=== PATIENT | male | born 1985 | race Caucasian/White ===

== ENCOUNTER 2017-08-18 07:35 | Emergency (ER) | payer MEDICAID, SELFPAY ==
--- NOTE | 2017-08-18 07:53 | EDM.PDOC ---
ED HPI GENERAL MEDICAL PROBLEM - General Chief Complaint: General Stated Complaint: Hypoglycemia Time Seen by Provider: 08/18/17 07:40 Source of Information: Reports: Patient, EMS, EMS Notes Reviewed. Denies: Old Records (No [facility] records available) History Limitations: Reports: No Limitations - History of Present Illness INITIAL COMMENTS - FREE TEXT/NARRATIVE: The patient was brought to the emergency room via basic ambulance transfer with no treatment in route. Note that at about 06:45 patient began feeling dizzy and having some mild hypoglycemic symptoms similar to his previous episodes. He was given orange juice and a tube of glucose by the [facility] nurse at that time. Initial Accu-Chek of 87 mg percent by the [facility] nurse with improvement to 103 mg percent prior to transfer to this facility. No additional treatment was given in route. 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 He does take Accu-Cheks on a 3 times a day to 4 times a day basis with lighting scale in effect. His last oral intake was spaghetti at 3 AM this morning. No recent change of his diabetic therapy. He denies any pain or discomfort with improved/resolved symptoms at time of arrival. The patient denies any chest pain/pressure, heart flutter, orthostasis, orthopnea, diaphoresis, paresthesias, recent decreased exercise tolerance, or any other anginal-type symptoms. No recent history of abdominal pain, heartburn, nausea, diarrhea, melena, gross hematochezia, or any food intolerance, including fatty foods, etc.. The patient also denies any recent fever, cough, wheezing, dyspnea , etc.. No history of recent headaches, visual changes, diplopia, change in mental status, or other change in neurological status. Onset: Today, Sudden Onset Date: 08/18/17 Onset Time: 06:45 Duration: Improving, Resolved Prior to Arrival Location: Reports: Other (No pain) Quality: Reports: Same as Previous Episode Severity: Mild Improves with: Reports: Other (Oral intake as above) Worsens with: Reports: None Associated Symptoms: Reports: Confusion (Possible borderline). Denies: Chest Pain, Cough, Diaphoresis, Fever/Chills, Headaches, Loss of Appetite, Malaise, Nausea/Vomiting, Seizure, Shortness of Breath, Syncope, Weakness Treatments [employer]: Reports: Other (see below) (As above) - Related Data Allergies Allergy/AdvReac Type Severity Reaction Status Date / Time amoxicillin Allergy Cannot Verified 08/18/17 07:45 Remember insulin detemir Allergy Itching Verified 08/18/17 07:45 [From Levemir] Penicillins Allergy Cannot Verified 08/18/17 07:45 Remember Home Meds: Home Meds Insulin Glarg,Human.Rec.Analog [LantUS Solostar] 30 units SUBCUT DAILY@1999 [History] Insulin Lispro [Humalog Kwikpen U-100] 10 - 12 unit SUBCUT TIDMEALS 08/18/17 [ History] Past Medical History HEENT History: Reports: Impaired Vision, Other (See Below). Denies: Allergic Rhinitis, Cataract, Glaucoma, Hard of Hearing, Macular Degeneration, Retinal Detachment Other HEENT History: He wears glasses with no history of diabetic retinopathy Cardiovascular History: Reports: Heart Murmur, High Cholesterol, Other (See Below). Denies: Aneurysm, Arrhythmia, Blood Clots/VTE/DVT, CAD, Heart Failure, Hypertension, AL, PVD, Syncope Other Cardiovascular History: Hyperlipidemia currently diet controlled; previous history of unknown type of heart murmur secondary to previous illicit drug use Respiratory History: Reports: None. Denies: Asthma, COPD, Intubation, Difficult , Intubation, Previous, PE, Pneumothorax, Sleep Apnea Gastrointestinal History: Reports: Cholelithiasis, Gastritis, GERD, Other (See Below). Denies: Bowel Obstruction, Chronic Constipation, Chronic Diarrhea, Colon Polyp, Fecal Incontinence, GI Bleed, Hepatitis, Hiatal Hernia, Inflammatory Bowel Disease, Irritable Bowel Syndrome, Jaundice, Pancreatitis, PUD Other Gastrointestinal History: Esophageal tear in 2001 secondary to illness and alcohol abuse with NG tube therapy and Port-A-Cath needed however no other surgical procedures Genitourinary History: Reports: Diabetic Nephropathy, Other (See Below). Denies : Acute Renal Failure, BPH, Chronic Renal Insuffiency, Renal Calculus, STD, Urinary Incontinence Other Genitourinary History: Proteinuria Musculoskeletal History: Reports: None. Denies: Amputation, Arthritis, Back Pain, Chronic, Fracture, Gout, Neck Pain, Chronic, Osteoarthritis, RA, SLE Neurological History: Reports: None. Denies: Cerebral Aneurysms, Concussion, CVA, Headaches, Chronic, Head Trauma, Migraines, MS, Neuropathy, Diabetic, Neuropathy, Peripheral, Parkinson's, Seizure, TIA Psychiatric History: Reports: Addiction, Anxiety, Depression, Hallucinations, Psych Hospitalization(s), Other (See Below). Denies: Abuse, Victim of, ADD, ADHD, PTSD, Suicide Attempt, Suicidal Ideation Other Psychiatric History: Illicit drug abuse between ages 11 and 18 including cocaine, methamphetamine's, marijuana, etc. with additional alcohol abuse during those ages with previous inpatient treatment at age 18; previous medical therapy for anxiety depression disorder but no occasions or counseling at this time Endocrine/Metabolic History: Reports: Diabetes, Type I, IDDM, Other (See Below) . Denies: Diabetes, Type II, Hypothyroidism Other Endocrine/Metabolic History: Type I IDDM initially diagnosed at age 3 Hematologic History: Reports: None. Denies: Anemia, Blood Transfusion(s), Iron Deficiency Immunologic History: Reports: None. Denies: AIDS, HIV, SLE Oncologic (Cancer) History: Reports: None. Denies: Basal Cell Carcinoma, Hodgkin's Lymphoma, Leukemia, Lymphoma, Malignant Melanoma, Non-Hodgkin's Lymphoma, Squamous Cell Carcinoma Dermatologic History: Reports: Other (See Below). Denies: Eczema, Psoriasis Other Dermatologic History: Acne vulgaris - Infectious Disease History Infectious Disease History: Reports: Chicken Pox, Mononucleosis. Denies: C- Difficile, Measles, Meningitis, MRSA, Mumps, Pertussis (Whooping Cough), Rheumatic Fever, Rubella, Scarlet Fever, Shingles - Past Surgical History Head Surgeries/Procedures: Reports: None HEENT Surgical History: Reports: None. Denies: Adenoidectomy, Eye Surgery, Laser Surgery, LASIK, Myringotomy w Tube(s), Naso-Sinus Surgery, Oral Surgery, Tonsillectomy Cardiovascular Surgical History: Reports: None. Denies: Varicose Respiratory Surgical History: Reports: None. Denies: Lung Biopsies, Thoracentesis GI Surgical History: Reports: Cholecystectomy, EGD, Other (See Below). Denies: Appendectomy, Colonoscopy, Hernia, Abdominal, Hernia, Inguinal, Hernia Repair/ Other Other GI Surgeries/Procedures: Laparoscopic cholecystectomy in 2009 secondary to dysfunctional gallbladder from his diabetes; EGD secondary to esophageal tear in 2001 Male Surgical History: Reports: Circumcision, Other (See Below). Denies: Vasectomy Other Male Surgeries/Procedures: Circumcision as an Endocrine Surgical History: Reports: None. Denies: Thyroid Biopsy Neurological Surgical History: Reports: None. Denies: C-Spine, Discectomy, Intracranial, Laminectomy, Lumbar Spine, Sacral Spine, Spinal Fusion, Vertebroplasty Musculoskeletal Surgical History: Reports: None. Denies: Arthroscopic Procedure , Carpal Tunnel, Ganglion Cyst, Joint Replacement, ORIF, Shoulder Surgery Oncologic Surgical History: Reports: None Dermatological Surgical History: Reports: None Social & Family History - Tobacco Use Smoking Status *Q: Current Every Day Smoker Tobacco Use Within Last Twelve Months: Cigarettes Years of Tobacco use: 22 Packs/Tins Daily: 0.5 (Smoking at age 10 with maximum use of one pack per day) Smoking Cessation Information Provided To Patient: Yes Second Hand Smoke Exposure: Yes Source of Second Hand Smoke Exposure: Girlfriend Second Hand Smoke Education Provided: Yes - Caffeine Use Caffeine Use: Reports: Coffee (4-5 cups per day), Energy Drinks (1 can per week any). Denies: Soda, Tea - Alcohol Use Alcohol Use History: Yes Days Per Week of Alcohol Use: 0 (Previous history of alcohol abuse and treatment as above) Number of Drinks Per Day: 2 (Usually beer or mixed drinks) Total Drinks Per Week: 0 Alcohol Use in Last Twelve Months: Yes - Recreational Drug Use Recreational Drug Use: Yes Drug Use in Last 12 Months: Yes Recreational Drug Type: Reports: Amphetamines (Speed), Cocaine, Marijuana/ Hashish, Methamphetamine, Other (see below). Denies: Heroin, Inhalants (Glues, Solvents, Aerosols), LSD (Acid) Other Recreational Drug Type: Illicit drug use addiction and treatment as above with persistent marijuana use of one joint per day which he uses for his anxiety Recreational Drug Route: Reports: Inhaled - Living Situation & Occupation Living situation: Reports: with Significant Other (With 2 children from this relationship), with Family Occupation: Employed ([employer]) Social History [facility] - Review of Systems Review Of Systems: See Below Constitutional: Reports: No Symptoms. Denies: Fever, Chills, Malaise, Weakness , Fatigue, Night Sweats, Diaphoresis, Decreased Appetite, Weight Loss, Weight Gain HEENT: Reports: Glasses. Denies: Contact Lenses, Dental Pain, Ear Discharge, Ear Pain, Eye Pain, Rhinitis, Sinus Problem, Throat Pain, Vertigo, Vision Change Respiratory: Reports: No Symptoms. Denies: Shortness of Breath, Wheezing, Pleuritic Chest Pain, Cough Cardiovascular: Reports: Lightheadedness. Denies: Chest Pain, Blood Pressure Problem, Claudication, Dyspnea on Exertion, Edema, Orthopnea, Palpitations, Syncope Endocrine: Reports: High Glucose (As above), Low Glucose (As above). Denies: Fatigue, Polydypsia, Polyuria GI/Abdominal: Reports: No Symptoms. Denies: Abdominal Pain, Anorexia, Black Stool, Bloody Stool, Constipation, Diarrhea, Decreased Appetite, Difficulty Swallowing, Distension, Hematemesis, Hematochezia, Melena, Nausea, Stool Incontinence, Vomiting : Reports: No Symptoms. Denies: Discharge, Dysuria, Flank Pain, Frequency, Hematuria, Incontinence, Pain, Urgency, Urinary Retention Musculoskeletal: Reports: No Symptoms. Denies: Neck Pain, Shoulder Pain, Arm Pain, Back Pain, Leg Pain Skin: Reports: No Symptoms. Denies: Diaphoresis, Bruising, Wound Neurological: Reports: Confusion (Borderline), Dizziness. Denies: Headache, Numbness, Paresthesia, Seizure, Syncope, Tingling, Trouble Speaking, Weakness, Change in Speech, Gait Disturbance Psychiatric: Reports: Confusion. Denies: Agitation, Anxiety, Cravings, Depression, Hallucinations, Homicidal Ideation, Mood Lability, Suicidal Ideation Hematologic/Lymphatic: Reports: No Symptoms Immunologic: Reports: No Symptoms ED EXAM, GENERAL - Physical Exam Exam: See Below Exam Limited By: No Limitations General Appearance: Alert, WD/WN, No Apparent Distress. No: Anxious Head: Atraumatic, Normocephalic Neck: Normal Inspection, Supple, Non-Tender, Full Range of Motion. No: Lymphadenopathy (L), Lymphadenopathy (R), Thyromegaly Respiratory/Chest: No Respiratory Distress, Lungs Clear, Normal Breath Sounds, No Accessory Muscle Use, Chest Non-Tender. No: Pleural Rub, Retractions Cardiovascular: Normal Peripheral Pulses, Regular Rate, Rhythm, No Edema, No Gallop, No JVD, No Murmur, No Rub. No: Gallop/S3, Gallop/S4, Friction Rub Peripheral Pulses: 2+: Radial (L), Radial (R) GI/Abdominal: Normal Bowel Sounds, Soft, Non-Tender, No Organomegaly, No Distention, No Abnormal Bruit, No Mass, Pelvis Stable. No: Guarding (Male) Exam: Deferred Rectal (Males) Exam: Deferred Back Exam: Normal Inspection, Full Range of Motion. No: CVA Tenderness (L), CVA Tenderness (R), Muscle Spasm Extremities: Normal Inspection, Normal Range of Motion, Non-Tender, Normal Capillary Refill, No Pedal Edema Neurological: Alert, Oriented, CN II-XII Intact, Normal Cognition, Normal Gait, Normal Reflexes, No Motor/Sensory Deficits Psychiatric: Normal Affect, Normal Mood Skin Exam: Warm, Dry, Intact, Normal Color, No Rash, Other (Moderate facial acne vulgaris). No: Diaphoretic, Wound/Incision Lymphatic: No Adenopathy Course - Vital Signs Last Recorded V/S: Last Vital Signs Temp 37.0 C 08/18/17 07:35 Pulse 98 08/18/17 07:35 Resp 16 08/18/17 07:35 BP 141/89 H 08/18/17 07:35 Pulse Ox 96 08/18/17 07:35 Vital Signs - 24 hr 08/18/17 07:35 Temperature [ 37.0 C Temporal] Pulse, 98 Peripheral [ Pulse Oximetry] Respiratory 16 Rate Blood Pressure 141/89 H [Left Upper Arm ] O2 Sat by Pulse 96 Oximetry - Orders/Labs/Meds Orders: Active Orders 24 hr Category Date Time Status Blood Glucose Check, Bedside [RC] STAT Care 08/18/17 07:39 Active Blood Glucose Check, Bedside [RC] STAT Care 08/18/17 08:37 Ordered Obtain Past Medical Record [OM.PC] Routine Oth 08/18/17 07:53 Active Labs: Laboratory Tests 08/18/17 08/18/17 08/18/17 Range/Units 08:04 08:04 08:04 WBC 12.3 H (4.0-10.2) K/uL RBC 4.55 (4.33-5.41) M/uL Hgb 14.5 (13.1-16.8) g/dL Hct 41.7 (39.0-49.0) % MCV 91.6 (84.0-98.0) fL MCH 31.9 (28.2-33.3) pg MCHC 34.8 (31.7-36.0) g/dL RDW 13.1 (11.2-14.1) % Plt Count 233 (150-350) K/uL Neut % (Auto) 74.6 (45.0-80.0) % Lymph % (Auto) 15.2 (10.0-50.0) % [place] % (Auto) 7.0 (2.0-14.0) % Eos % (Auto) 2.8 (0.0-5.0) % Baso % (Auto) 0.4 (0.0-2.0) % Neut # (Auto) 9.15 H (1.40-7.00) K/uL Lymph # (Auto) 1.87 (0.50-3.50) K/uL [place] # (Auto) 0.86 (0.00-1.00) K/uL Eos # (Auto) 0.34 (0.00-0.50) K/uL Baso # (Auto) 0.05 (0.00-0.20) K/uL Sodium 137 (136-145) mmol/L Potassium 3.9 (3.5-5.1) mmol/L Chloride 101 (98-107) mmol/L Carbon Dioxide 25.5 (21.0-32.0) mmol/L BUN 23 H (7-18) mg/dL Creatinine 0.99 (0.51-1.17) mg/dL Est Cr Clr Drug Dosing 101.72 mL/min Estimated GFR (MDRD) > 60 mL/min Glucose 99 (74-106) mg/dL Hemoglobin A1c 8.7 H (4.3-5.7) % Calcium 9.3 (8.5-10.1) mg/dL Total Bilirubin 0.2 (0.2-1.0) mg/dL AST 17 (15-37) U/L ALT 31 (12-78) U/L Alkaline Phosphatase 79 (46-116) IU/L Total Protein 6.8 (6.4-8.2) g/dL Albumin 3.8 (3.4-5.0) g/dL Initial Accu-Chek on arrival of 110 mg percent with Accu-Chek of 141 mg percent at time of discharge Meds: None - Radiology Interpretation Free Text/Narrative:: None Departure - Departure Time of Disposition: 20:50 Disposition: Home, Self-Care 01 Condition: Good Clinical Impression: Hypoglycemia, IDDM (insulin dependent diabetes mellitus), Diabetic nephropathy associated with type 1 diabetes mellitus, Tobacco abuse counseling, Continuous illicit drug use, Hyperlipidemia, Leukocytosis - Discharge Information Instructions: Hypoglycemia, [id number] Referrals: Herbert Black MD [Primary Care Provider] - Forms: ED Department Discharge Additional Instructions: 1. Follow up with your regular provider in 10-14 days as already scheduled with recommended repeat CBC at that time. 2. Work excuse- See Form 3. Stop all tobacco use BREAN[facility] as directed/per provided information and consider contacting [facility]uit [facility], etc.. 4. Discontinue alcohol, marijuana, energy drinks, etc. BREANNA as discussed secondary to your risk factors 5. Continue to observe your blood pressures closely through your regular provider 6. Discuss with your regular provider possible initiation of statin therapy and LAURA inhibitor secondary to your diabetes, hyperlipidemia, and risk factors as discussed - Problem List & Annotations (1) Hypoglycemia SNOMED Code(s): 860026691 Code(s): E16.2 - HYPOGLYCEMIA, UNSPECIFIED Status: Acute Priority: High Current Visit: Yes Onset Date: 08/18/17 Annotation/Comment:: Overall good response to treatment both in the emergency room and prior to arrival as above. [facility] work excuse provided. Continue to observe closely by regular provider. Note the patient was given multiple doses of orange juice in the emergency room. He did refuse recommended IV/saline lock for administration of IV fluids, etc. The patient was alert prior to discharge with no sequelae from hypoglycemic reaction (2) IDDM (insulin dependent diabetes mellitus) SNOMED Code(s): 71228920 Code(s): E11.9 - TYPE 2 DIABETES MELLITUS WITHOUT COMPLICATIONS; Z79.4 - CARE HOME (CURRENT) USE OF INSULIN Status: Chronic Priority: Medium Current Visit: Yes Annotation/Comment:: Continue to observe closely by his regular providers. He does apparently have upcoming appointments both for diabetic dietary counseling, adjustment of therapy, etc. by his history, No recent change of medications as above. Continue sliding scale as before. Note glycosylated hemoglobin of 8.7% today with history of labile IDDM as above (3) Continuous illicit drug use SNOMED Code(s): 157773912 Code(s): F19.90 - OTHER PSYCHOACTIVE SUBSTANCE USE, UNSPECIFIED, UNCOMPLICATED Status: Acute Priority: High Current Visit: Yes Annotation /Comment:: He was congratulated about discontinuing previous illicit drug use, however note persistent marijuana use. This should be discontinued BREANNA secondary to his risk factors and previous treatment (4) Diabetic nephropathy associated with type 1 diabetes mellitus SNOMED Code(s): 756319678 Code(s): E10.21 - TYPE 1 DIABETES MELLITUS WITH DIABETIC NEPHROPATHY Status : Chronic Priority: Medium Current Visit: Yes Annotation/Comment:: Note previous history of proteinuria. Patient would benefit from an LAURA inhibitor secondary to his type I IDDM. Mildly elevated blood pressures on arrival with no history of hypertension and improvement without treatment. Patient was also strongly advised to his continued energy drink use BREANNA. He will discuss this further with his primary provider (5) Tobacco abuse counseling SNOMED Code(s): 179907469, 863065428 Code(s): Z71.6 - TOBACCO ABUSE COUNSELING Status: Chronic Priority: Medium Current Visit: Yes Annotation/Comment:: Tobacco cessation strongly encouraged with tobacco cessation information provided prior to discharge (6) Hyperlipidemia SNOMED Code(s): 08391519 Code(s): E78.5 - HYPERLIPIDEMIA, UNSPECIFIED Status: Chronic Priority: Medium Current Visit: Yes Annotation/Comment:: He would benefit from statin therapy with this to be discussed with his regular provider Qualifiers: Hyperlipidemia type: mixed hyperlipidemia Qualified Code(s): E78.2 - Mixed hyperlipidemia (7) Leukocytosis SNOMED Code(s): 404251149 Code(s): D72.829 - ELEVATED WHITE BLOOD CELL COUNT, UNSPECIFIED Status: Acute Priority: High Current Visit: Yes Onset Date: 08/18/17 Annotation/ Comment:: Mild leukocytosis likely secondary to stress reaction with no recent history of fever, bronchitic type symptoms, etc.. Continue to observe closely by his regular provider as per discharge instructions Qualifiers: Leukocytosis type: bandemia Qualified Code(s): D72.825 - Bandemia - Problem List Review Problem List Initiated/Reviewed/Updated: Yes - My Orders Last 24 Hours: My Active Orders 08/18/17 07:39 Blood Glucose Check, Bedside [RC] STAT 08/18/17 07:53 Obtain Past Medical Record [OM.PC] Routine 08/18/17 08:37 Blood Glucose Check, Bedside [RC] STAT - Assessment/Plan Last 24 Hours: My Active Orders 08/18/17 07:39 Blood Glucose Check, Bedside [RC] STAT 08/18/17 07:53 Obtain Past Medical Record [OM.PC] Routine 08/18/17 08:37 Blood Glucose Check, Bedside [RC] STAT Assessment:: As above Plan: As above. Extensive precautions were given to the patient, who is in agreement with the treatment plan. See Patient Instructions for further treatment and plan.
[2017-08-18 08:26] LABS: CHLORIDE,CL 101 mmol/L (98-107); SODIUM,NA 137 mmol/L (136-145)
== END 2017-08-18 08:50 | disposition home or self-care (01) ==
LOC: LL.ED 07:35
DX: E10.40 Type 1 diabetes mellitus with diabetic neuropathy, unspecified (principal); E10.649 Type 1 diabetes mellitus with hypoglycemia without coma; F17.210 Nicotine dependence, cigarettes, uncomplicated; F19.90 Other psychoactive substance use, unspecified, uncomplicated; E78.5 Hyperlipidemia, unspecified; D72.829 Elevated white blood cell count, unspecified; Z97.4 Presence of external hearing-aid; Z71.6 Tobacco abuse counseling; Z88.1 Allergy status to other antibiotic agents
CPT/HCPCS: 36415; 80053; 82962; 83036; 85025; 99283; 99285

== ENCOUNTER 2018-10-28 14:48 | Emergency (ER) | payer BC ==
[2018-10-28] MEDS ORDERED: Sodium Chloride 0.9% 10 ML Syringe FLUSH PRN (14:57)
[2018-10-28] MEDS: Sodium Chloride 0.9% 1,000 ML IV ONE ×2 (15:10→16:46)
[2018-10-28 15:25] LABS: CHLORIDE,CL 99 mmol/L (98-107); SODIUM,NA 135 mmol/L (136-145)
--- NOTE | 2018-10-28 16:13 | EDM.PDOC ---
ED HPI GENERAL MEDICAL PROBLEM - General Chief Complaint: General Stated Complaint: N/V, Dehydration Time Seen by Provider: 10/28/18 14:56 Source of Information: Reports: Patient History Limitations: Reports: No Limitations - History of Present Illness INITIAL COMMENTS - FREE TEXT/NARRATIVE: Patient comes to ER after having nausea, emesis, loose stools since 5am yesterday. Has not vomited however since this morning. One child at home had similar symptoms on Friday, 4 days ago. Is type 1 diabetic. Blood sugars have been elevated more than usual (in 300s) but patient afraid to take any insulin as he was unable to tolerate oral intake. Feels dehydrated. Starting to be able to tolerate some PO fluids. Has had DKA in past when ill. No other reported changes. - Related Data Allergies Allergy/AdvReac Type Severity Reaction Status Date / Time cefaclor [From Ceclor] Allergy Other Verified 08/15/18 09:14 insulin detemir Allergy Itching Verified 08/15/18 09:14 [From Levemir] Penicillins Allergy Cannot Verified 08/15/18 09:14 Remember Home Meds: Home Meds Insulin Lispro [Humalog Kwikpen U-100] 10 - 12 unit SUBCUT TIDMEALS 08/18/17 [ History] Non-Formulary Medication [NF Drug] 34 units SUBCUT DAILY 08/15/18 [History] Past Medical History HEENT History: Reports: Impaired Vision, Other (See Below) Other HEENT History: He wears glasses with no history of diabetic retinopathy. Nasal fracture 2 last in 2012. Cardiovascular History: Reports: Heart Murmur, High Cholesterol, Other (See Below) Other Cardiovascular History: Hyperlipidemia currently diet controlled; previous history of unknown type of heart murmur secondary to previous illicit drug use Respiratory History: Reports: Intubation, Previous, Other (See Below) Other Respiratory History: Pulmonary obstructive disease by previous chest x- rays with no current treatment Gastrointestinal History: Reports: Cholelithiasis, Gastritis, GERD, GI Bleed, Other (See Below) Other Gastrointestinal History: Esophageal tear in 2001 secondary to illness and alcohol abuse with NG tube therapy and Port-A-Cath needed however no other surgical procedures Genitourinary History: Reports: Chronic Renal Insuffiency, Diabetic Nephropathy , Other (See Below) Other Genitourinary History: Proteinuria Musculoskeletal History: Reports: Fracture, Other (See Below) Other Musculoskeletal History: Nasal fractures as above. Neurological History: Reports: Seizure, Other (See Below) Other Neuro History: Apparent unknown type of seizure activity with hypoglycemic episodes. Psychiatric History: Reports: Addiction, Anxiety, Depression, Hallucinations, Psych Hospitalization(s), Other (See Below) Other Psychiatric History: Illicit drug abuse between ages 11 and 18 including cocaine, methamphetamine's, marijuana, etc. with additional alcohol abuse during those ages with previous inpatient treatment at age 18; note current daily use of marijuana for his nausea? previous medical therapy for anxiety depression disorder but no current medications or counseling at this time. Endocrine/Metabolic History: Reports: Diabetes, Type I, IDDM, Other (See Below) Other Endocrine/Metabolic History: Type I IDDM initially diagnosed at age 3 with recurrent hypoglycemic episodes. Hematologic History: Reports: None Immunologic History: Reports: None Oncologic (Cancer) History: Reports: None Dermatologic History: Reports: Other (See Below) Other Dermatologic History: Acne vulgaris - Infectious Disease History Infectious Disease History: Reports: Chicken Pox, Mononucleosis - Past Surgical History Head Surgeries/Procedures: Reports: None HEENT Surgical History: Reports: None Cardiovascular Surgical History: Reports: None Respiratory Surgical History: Reports: None GI Surgical History: Reports: Cholecystectomy, EGD, Other (See Below) Other GI Surgeries/Procedures: Laparoscopic cholecystectomy in 2009 secondary to dysfunctional gallbladder from his diabetes; EGD secondary to esophageal tear in 2001 Male Surgical History: Reports: Circumcision, Other (See Below) Other Male Surgeries/Procedures: Circumcision as an infant Endocrine Surgical History: Reports: None Neurological Surgical History: Reports: None Musculoskeletal Surgical History: Reports: None Oncologic Surgical History: Reports: None Dermatological Surgical History: Reports: None Social & Family History - Caffeine Use Caffeine Use: Reports: Coffee, Soda - Living Situation & Occupation Living situation: Reports: with Significant Other (With 2 children from this relationship), with Family Occupation: Employed ([employer]) ED [facility] GENERAL - Review of Systems Review Of Systems: See Below Constitutional: Reports: Fatigue, Decreased Appetite. Denies: Fever HEENT: Reports: No Symptoms Respiratory: Reports: No Symptoms Cardiovascular: Reports: No Symptoms Endocrine: Reports: High Glucose GI/Abdominal: Reports: Diarrhea (improving), Decreased Appetite, Nausea, Vomiting. Denies: Abdominal Pain, Difficulty Swallowing, Distension, Hematemesis, Hematochezia : Reports: No Symptoms. Denies: Flank Pain Musculoskeletal: Reports: No Symptoms Skin: Reports: No Symptoms Neurological: Reports: No Symptoms Psychiatric: Reports: No Symptoms Hematologic/Lymphatic: Reports: No Symptoms ED EXAM, GENERAL - Physical Exam Exam: See Below Exam Limited By: No Limitations General Appearance: Alert, WD/WN, No Apparent Distress Eye Exam: Bilateral Eye: EOMI, PERRL Ears: Normal External Exam Nose: Normal Inspection Throat/Mouth: Normal Inspection, Normal Lips, Normal Voice, No Airway Compromise Head: Atraumatic, Normocephalic Neck: Normal Inspection, Supple, Non-Tender, Full Range of Motion Respiratory/Chest: No Respiratory Distress, Lungs Clear, Normal Breath Sounds, No Accessory Muscle Use Cardiovascular: Normal Peripheral Pulses, Regular Rate, Rhythm, No Edema, No Murmur Peripheral Pulses: 2+: Radial (L), Radial (R) GI/Abdominal: Soft, Non-Tender, No Distention, Abnormal Bowel Sounds (diminished ) (Male) Exam: Deferred Rectal (Males) Exam: Deferred Back Exam: No: CVA Tenderness (L), CVA Tenderness (R) Extremities: Normal Inspection, Normal Range of Motion, Non-Tender, No Pedal Edema, Normal Capillary Refill Neurological: Alert, Oriented, CN II-XII Intact, Normal Cognition, Normal Gait, No Motor/Sensory Deficits Psychiatric: Normal Affect, Normal Mood Skin Exam: Warm, Dry, Intact, Normal Color Course - Vital Signs Last Recorded V/S: Last Vital Signs Temp 36.1 C 10/28/18 14:50 Pulse 90 10/28/18 14:50 Resp 16 10/28/18 14:50 BP 141/75 H 10/28/18 14:50 Pulse Ox 98 10/28/18 14:50 - Orders/Labs/Meds Orders: Active Orders 24 hr Category Date Time Status Saline Lock Insert [OM.PC] Stat Oth 10/28/18 14:57 Ordered Labs: Laboratory Tests 10/28/18 10/28/18 10/28/18 Range/Units 15:00 15:00 15:00 WBC 6.6 (4.0-10.2) K/uL RBC 4.70 (4.33-5.41) M/uL Hgb 15.0 (13.1-16.8) g/dL Hct 42.4 (39.0-49.0) % MCV 90.2 (84.0-98.0) fL MCH 31.9 (28.2-33.3) pg MCHC 35.4 (31.7-36.0) g/dL RDW 13.1 (11.2-14.1) % Plt Count 194 D (150-350) K/uL Neut % (Auto) 75.6 (45.0-80.0) % Lymph % (Auto) 13.9 (10.0-50.0) % [place] % (Auto) 8.3 (2.0-14.0) % Eos % (Auto) 1.7 (0.0-5.0) % Baso % (Auto) 0.5 (0.0-2.0) % Neut # (Auto) 5.00 (1.40-7.00) K/uL Lymph # (Auto) 0.92 (0.50-3.50) K/uL [place] # (Auto) 0.55 (0.00-1.00) K/uL Eos # (Auto) 0.11 (0.00-0.50) K/uL Baso # (Auto) 0.03 (0.00-0.20) K/uL Sodium 135 L (136-145) mmol/L Potassium 4.0 (3.5-5.1) mmol/L Chloride 99 (98-107) mmol/L Carbon Dioxide 26.5 (21.0-32.0) mmol/L BUN 28 H (7-18) mg/dL Creatinine 1.00 (0.51-1.17) mg/dL Est Cr Clr Drug Dosing TNP Estimated GFR (MDRD) > 60 mL/min Glucose 368 H (74-106) mg/dL POC Glucose (65-110) mg/dl Lactic Acid 1.5 (0.4-2.0) mmol/L Calcium 8.6 (8.5-10.1) mg/dL Magnesium 2.1 (1.8-2.4) mg/dL Total Bilirubin 0.4 (0.2-1.0) mg/dL AST 27 (15-37) U/L ALT 43 (12-78) U/L Alkaline Phosphatase 75 (46-116) IU/L Total Protein 6.7 (6.4-8.2) g/dL Albumin 3.5 (3.4-5.0) g/dL Specimen Type Urine Color Urine Appearance Urine pH (5.0-9.0) Ur Specific [place] (1.005-1.030) Urine Protein (NEGATIVE) mg/dL Urine Glucose (UA) (NEGATIVE) mg/dL Urine Ketones (NEGATIVE) mg/dL Urine Occult Blood (NEGATIVE) Urine Nitrite (NEGATIVE) Urine Bilirubin (NEGATIVE) Urine Urobilinogen (0.2-1.0) E.U./dL Ur Leukocyte Esterase (NEGATIVE) Urine RBC /HPF Urine WBC /HPF Ur Epithelial Cells /LPF Urine Bacteria (NONE TO FEW) /HPF Ketones 10/28/18 10/28/18 10/28/18 Range/Units 15:00 16:30 17:54 WBC (4.0-10.2) K/uL RBC (4.33-5.41) M/uL Hgb (13.1-16.8) g/dL Hct (39.0-49.0) % MCV (84.0-98.0) fL MCH (28.2-33.3) pg MCHC (31.7-36.0) g/dL RDW (11.2-14.1) % Plt Count (150-350) K/uL Neut % (Auto) (45.0-80.0) % Lymph % (Auto) (10.0-50.0) % [place] % (Auto) (2.0-14.0) % Eos % (Auto) (0.0-5.0) % Baso % (Auto) (0.0-2.0) % Neut # (Auto) (1.40-7.00) K/uL Lymph # (Auto) (0.50-3.50) K/uL [place] # (Auto) (0.00-1.00) K/uL Eos # (Auto) (0.00-0.50) K/uL Baso # (Auto) (0.00-0.20) K/uL Sodium (136-145) mmol/L Potassium (3.5-5.1) mmol/L Chloride (98-107) mmol/L Carbon Dioxide (21.0-32.0) mmol/L BUN (7-18) mg/dL Creatinine (0.51-1.17) mg/dL Est Cr Clr Drug Dosing Estimated GFR (MDRD) mL/min Glucose (74-106) mg/dL POC Glucose 305 H* (65-110) mg/dl Lactic Acid (0.4-2.0) mmol/L Calcium (8.5-10.1) mg/dL Magnesium (1.8-2.4) mg/dL Total Bilirubin (0.2-1.0) mg/dL AST (15-37) U/L ALT (12-78) U/L Alkaline Phosphatase (46-116) IU/L Total Protein (6.4-8.2) g/dL Albumin (3.4-5.0) g/dL Specimen Type Urinblad Urine Color Yellow Urine Appearance Clear Urine pH 5.5 (5.0-9.0) Ur Specific [place] 1.020 (1.005-1.030) Urine Protein 100 H (NEGATIVE) mg/dL Urine Glucose (UA) 500 H (NEGATIVE) mg/dL Urine Ketones 40 H (NEGATIVE) mg/dL Urine Occult Blood Trace-lysed H (NEGATIVE) Urine Nitrite Negative (NEGATIVE) Urine Bilirubin Negative (NEGATIVE) Urine Urobilinogen 0.2 (0.2-1.0) E.U./dL Ur Leukocyte Esterase Negative (NEGATIVE) Urine RBC 0-5 /HPF Urine WBC 0-5 /HPF Ur Epithelial Cells Rare /LPF Urine Bacteria Rare (NONE TO FEW) /HPF Ketones Negative Meds: Medications Discontinued Medications Generic Name Dose Route Start Last Admin Trade Name Freq PRN Reason Stop Dose Admin Sodium Chloride 1,000 mls @ 999 mls/hr 10/28/18 14:58 10/28/18 15:10 Normal Saline IV 10/28/18 15:58 999 mls/hr .BOLUS ONE Administration Sodium Chloride 1,000 mls @ 999 mls/hr 10/28/18 16:14 10/28/18 16:46 Normal Saline IV 10/28/18 17:14 999 mls/hr .BOLUS ONE Administration Insulin Human Lispro 10 unit 10/28/18 16:06 10/28/18 16:45 Humalog SUBCUT 10/28/18 16:07 10 units ONETIME ONE Administration Insulin Human Lispro 10 unit 10/29/18 17:59 10/28/18 18:02 Humalog SUBCUT 10/29/18 18:00 10 unit ONETIME ONE Administration Ondansetron HCl 4 mg 10/28/18 14:58 10/28/18 16:46 Zofran IVPUSH 10/28/18 14:59 Not Given ONETIME ONE Sodium Chloride 10 ml 10/28/18 14:57 Saline Flush FLUSH ASDIRECTED PRN Keep Vein Open - Re-Assessments/Exams Free Text/Narrative Re-Assessment/Exam: Patient had labs drawn and IV fluid ordered. Total of two liters NS given. CBC unremarkable Chem showed elevated glucose of 368 but was otherwise overall unremarkable. Negative serum ketones. UA showed some protein/glucose as well as 40 ketones. No evidence of UTI. No evidence of DKA noted. Plan at this time is to have patient finish his fluids and return home. To advance diet as tolerated. Follow up as needed. Precautions reviewed prior to discharge. 10/28/18 20:58 Patient wished to go home after second liter of NS infused. BS improved but still just over 300. Additional insulin given. Patient did not want to stay any longer and promised to recheck BS in one hour and call us if it was over 250. Departure - Departure Time of Disposition: 18:30 Disposition: Home, Self-Care 01 Condition: Good Clinical Impression: Gastroenteritis, Hyperglycemia, IDDM (insulin dependent diabetes mellitus) - Discharge Information *PRESCRIPTION DRUG MONITORING PROGRAM REVIEWED*: Not Applicable *COPY OF PRESCRIPTION DRUG MONITORING REPORT IN PATIENT XANDER: Not Applicable Instructions: Viral Gastroenteritis, Adult, [id number] Referrals: PCP,None [Primary Care Provider] - Forms: ED Department Discharge Additional Instructions: Advance diet as tolerated. Carefully monitor your glucose levels and return to clinic or ER if you find them difficult to control. Recommend setting up followup appointment with local provider. Recommend having a continuous glucose monitor for better control and treatment of your diabetes. Order 's Diabetes Solution book which will help you in achieving more normalized blood sugars. Follow up as needed if you have further problems. - My Orders Last 24 Hours: My Active Orders 10/28/18 14:57 Saline Lock Insert [OM.PC] Stat - Assessment/Plan Last 24 Hours: My Active Orders 10/28/18 14:57 Saline Lock Insert [OM.PC] Stat
[2018-10-28] MEDS: Insulin Lispro 100 Units/ML 3 ML Vial SUBCUT ONE ×2 (16:45→18:02)
[2018-10-28] MEDS: Ondansetron 4 MG/2 ML SDV IVPUSH ONE (16:46)
== END 2018-10-28 18:20 | disposition home or self-care (01) ==
LOC: LL.ED 14:48
DX: E10.65 Type 1 diabetes mellitus with hyperglycemia (principal); K52.9 Noninfective gastroenteritis and colitis, unspecified; N18.9 Chronic kidney disease, unspecified; Z94.9 Transplanted organ and tissue status, unspecified; Z88.0 Allergy status to penicillin; Z88.8 Allergy status to other drugs, medicaments and biological substances; Z79.4 Long term (current) use of insulin
CPT/HCPCS: 36415; 80053; 81001; 82009; 82962; 83605; 83735; 85025; 96360; 96361; 96372; 99284; J1815; J7030

== ENCOUNTER 2019-02-25 16:33 | Emergency (ER) | payer BC ==
--- NOTE | 2019-02-25 16:37 | EDM.PDOC ---
ED HPI GENERAL MEDICAL PROBLEM - General Chief Complaint: General Stated Complaint: Hyperglycemia, polydipsia Time Seen by Provider: 02/25/19 16:37 Source of Information: Reports: Patient, Old Records ([facility] EMR. No paper hospital chart available.) History Limitations: Reports: No Limitations - History of Present Illness INITIAL COMMENTS - FREE TEXT/NARRATIVE: Patient drove himself to the emergency room via private automobile for evaluation of his diabetes, which has been under poor control during the last several weeks. He did have an appointment with his regular provider, LISA Vincent at the [facility], this afternoon, however missed this appointment. Patient did have an Accu-Chek of 386 mg percent at noon today with persistent polydipsia and nonspecific fatigue at this time. His Accu-Cheks have been averaging in the 300s to 400s during the last 2 weeks with an Accu-Chek of more than 500 yesterday evening. He is on a carbohydrate sliding scale, which he also took at noon with the patient taking Accu-Cheks on a 4 times a day basis at this time. The patient denies any chest pain/pressure, heart flutter, dizziness, orthostasis, orthopnea, diaphoresis, paresthesias, recent decreased exercise tolerance, or any other anginal-type symptoms. No recent history of abdominal pain, heartburn, nausea, diarrhea, melena, gross hematochezia, or any food intolerance, including fatty foods, etc.. He denies any gross hematuria, colic, or other UTI symptoms. The patient also denies any recent fever, cough, wheezing, dyspnea, etc.. No history of recent headaches, visual changes, diplopia, change in mental status, or other change in neurological status. He denies any current significant pain or other discomfort. Onset: Gradual Duration: Other (No pain) Improves with: Reports: None Worsens with: Reports: None Context: Denies: Sick Contact, Trauma Associated Symptoms: Reports: No Other Symptoms. 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: Insulin (As above) - Related Data Allergies Allergy/AdvReac Type Severity Reaction Status Date / Time amoxicillin Allergy unknown Verified 02/25/19 16:48 cefaclor [From Ceclor] Allergy Other Verified 08/15/18 09:14 insulin detemir Allergy Itching Verified 08/15/18 09:14 [From Levemir] Penicillins Allergy Cannot Verified 08/15/18 09:14 Remember Home Meds: Home Meds Insulin Lispro [Humalog Kwikpen U-100] 10 - 12 unit SUBCUT TIDMEALS 08/18/17 [ History] Non-Formulary Medication [NF Drug] 27 units SUBCUT DAILY 08/15/18 [History] Sertraline [Zoloft] 1 tab PO DAILY 02/25/19 [History] Past Medical History HEENT History: Reports: Impaired Vision, Other (See Below). Denies: Allergic Rhinitis, Cataract, Glaucoma, Hard of Hearing, Macular Degeneration, Otitis Media, Retinal Detachment Other HEENT History: He wears glasses with no history of diabetic retinopathy. Nasal fracture 2 last in 2012. Cardiovascular History: Reports: Heart Murmur, High Cholesterol, Other (See Below). Denies: Afib, Aneurysm, Arrhythmia, Blood Clots/VTE/DVT, CAD, Heart Failure, Hypertension, VT, PVD, Syncope Other Cardiovascular History: Hyperlipidemia currently diet controlled; previous history of unknown type of heart murmur secondary to previous illicit drug use Respiratory History: Reports: Intubation, Previous, Other (See Below). Denies: Asthma, Bronchitis, Recurrent, COPD, Intubation, Difficult, PE, Pneumonia, Recurrent, Sleep Apnea, TB Other Respiratory History: Pulmonary obstructive disease by previous chest x- rays with no current treatment Gastrointestinal History: Reports: Cholelithiasis, Gastritis, GERD, GI Bleed, Other (See Below). Denies: Bowel Obstruction, Celiac Disease, Chronic Constipation, Chronic Diarrhea, Colon Polyp, Fecal Incontinence, Hepatitis, Hiatal Hernia, Irritable Bowel Syndrome, Jaundice, Pancreatitis, PUD Other Gastrointestinal History: Esophageal tear in 2001 secondary to illness and alcohol abuse with NG tube therapy and Port-A-Cath needed however no other surgical procedures; history of elevated LFTs possibly secondary to fatty liver. Genitourinary History: Reports: Chronic Renal Insuffiency, Diabetic Nephropathy , Other (See Below). Denies: Acute Renal Failure, Renal Calculus, STD, Urinary Incontinence, UTI, Recurrent Other Genitourinary History: Proteinuria Musculoskeletal History: Reports: Fracture, Other (See Below). Denies: Amputation, Arthritis, Back Pain, Chronic, Gout, Neck Pain, Chronic, Osteoarthritis, RA, SLE Other Musculoskeletal History: Nasal fractures as above. Neurological History: Reports: Seizure, Other (See Below). Denies: Cerebral Aneurysms, Concussion, CVA, Headaches, Chronic, Head Trauma, Migraines, MS, Neuropathy, Diabetic, Neuropathy, Peripheral, Parkinson's, TIA, Vertigo Other Neuro History: Apparent unknown type of seizure activity with hypoglycemic episodes. Psychiatric History: Reports: Addiction, Anxiety, Depression, Hallucinations, Psych Hospitalization(s), Other (See Below). Denies: Abuse, Victim of, ADD, ADHD, PTSD, Suicide Attempt, Suicidal Ideation Other Psychiatric History: Illicit drug abuse between ages 11 and 18 including cocaine, methamphetamine's, marijuana, etc. with additional alcohol abuse during those ages with previous inpatient treatment at age 18; note current daily use of marijuana for his nausea? previous medical therapy for anxiety depression disorder but no current counseling at this time and only recent initiation of low-dose Zoloft therapy. Endocrine/Metabolic History: Reports: Diabetes, Type I, IDDM, Other (See Below) . Denies: Diabetes, Type II, Diabetes Mellitus, Type 3c, Hypothyroidism Other Endocrine/Metabolic History: Type I IDDM initially diagnosed at age 3 with recurrent hypoglycemic episodes with last episode on 08/15/18 with evaluation in this emergency room at that time. Hyponatremia. Hematologic History: Reports: None. Denies: Anemia, Blood Transfusion(s), Iron Deficiency Immunologic History: Reports: None. Denies: AIDS, HIV, SLE Oncologic (Cancer) History: Reports: None. Denies: Basal Cell Carcinoma, Hodgkin's Lymphoma, Leukemia, Lymphoma, Malignant Melanoma, Non-Hodgkin's Lymphoma, Squamous Cell Carcinoma Dermatologic History: Reports: Other (See Below). Denies: Eczema, Psoriasis Other Dermatologic History: Acne vulgarissevere including scarring - Infectious Disease History Infectious Disease History: Reports: Chicken Pox, Mononucleosis. Denies: C- Difficile, Measles, Meningitis, MRSA, Mumps, Rheumatic Fever, Rubella, Scarlet Fever, Shingles, TB, VRE - Past Surgical History Head Surgeries/Procedures: Reports: None HEENT Surgical History: Reports: None. Denies: Adenoidectomy, Eye Surgery, Laser Surgery, Naso-Sinus Surgery, Oral Surgery, Tonsillectomy Cardiovascular Surgical History: Reports: None. Denies: Varicose Respiratory Surgical History: Reports: None. Denies: Thoracentesis GI Surgical History: Reports: Cholecystectomy, EGD, Other (See Below). Denies: Appendectomy, Colonoscopy, Hernia, Abdominal, Hernia, Inguinal, Hernia Repair/ Other Other GI Surgeries/Procedures: Laparoscopic cholecystectomy in 2009 secondary to dysfunctional gallbladder from his diabetes; EGD secondary to esophageal tear in 2001 Male Surgical History: Reports: Circumcision, Other (See Below). Denies: Vasectomy Other Male Surgeries/Procedures: Circumcision as an Endocrine Surgical History: Reports: None. Denies: Thyroid Biopsy Neurological Surgical History: Reports: None. Denies: C-Spine, Discectomy, Laminectomy, Lumbar Spine, Sacral Spine, Spinal Fusion, Thoracic Spine, Vertebroplasty Musculoskeletal Surgical History: Reports: None. Denies: Arthroscopic Procedure , Carpal Tunnel, Ganglion Cyst, Joint Replacement, ORIF, Shoulder Surgery Oncologic Surgical History: Reports: None Dermatological Surgical History: Reports: None - Past Imaging History Past Imaging History: Reports: CAT Scan (CT of the head on 08/15/18.) Social & Family History - Tobacco Use Smoking Status *Q: Current Every Day Smoker Tobacco Use Within Last Twelve Months: Cigarettes Years of Tobacco use: 24 Packs/Tins Daily: 0.5 Packs/Tins Daily Comment: Started smoking at age 10 maximum use of one pack per day. Used Tobacco, but Quit: No Smoking Cessation Information Provided To Patient: Yes Second Hand Smoke Exposure: No Second Hand Smoke Education Provided: No - Caffeine Use Caffeine Use: Reports: Coffee (3 cups per day). Denies: Energy Drinks, Soda, Tea - Alcohol Use Alcohol Use History: No Days Per Week of Alcohol Use: 0 Number of Drinks Per Day Comment: Alcohol abuse history as above. Alcohol Use in Last Twelve Months: Yes - Recreational Drug Use Recreational Drug Use: Yes Drug Use in Last 12 Months: Yes Recreational Drug Type: Reports: Amphetamines (Speed), Cocaine, Marijuana/ Hashish, Methamphetamine, Other (see below). Denies: Heroin, Inhalants (Glues, Solvents, Aerosols), LSD (Acid), Morphine, Oxycodone Other Recreational Drug Type: Illicit drug abuse as above with patient denying any IV drug use history. He has been using marijuana on a daily basis until recently, however this has been substituted with CBD in recent weeks. - Living Situation & Occupation Living situation: Reports: with Family (Son and daughter) Occupation: Employed ([employer]) ED ROS GENERAL - Review of Systems Review Of Systems: ROS reveals no pertinent complaints other than HPI. ED EXAM, GENERAL - Physical Exam Exam: See Below Exam Limited By: No Limitations General Appearance: Alert, WD/WN, No Apparent Distress, Anxious (Moderate) Ears: Normal External Exam, Normal Canal, Hearing Grossly Normal, Normal TMs Nose: Normal Mucosa, No Blood, Nasal Deformity (Stable secondary to his previous nasal fractures with no recent injury) Throat/Mouth: Normal Lips, Normal Gums, Normal Oropharynx (With moist oral mucosa), Normal Voice, No Airway Compromise. No: Normal Teeth (Broken teeth and caries into the gumline of the left upper premolar region with no drainage, abscess, etc. and dentition in poor repair), Dysphagia, Inflammation, Perioral Cyanosis Head: Atraumatic, Normocephalic. No: Facial Swelling, Facial Tenderness Neck: Normal Inspection, Supple, Non-Tender, Full Range of Motion. No: Lymphadenopathy (L), Lymphadenopathy (R), Thyromegaly Respiratory/Chest: No Respiratory Distress, Lungs Clear, Normal Breath Sounds, No Accessory Muscle Use, Chest Non-Tender. No: Pleural Rub, Retractions Cardiovascular: Normal Peripheral Pulses, Regular Rate, Rhythm, No Edema, No Gallop, No JVD, No Murmur, No Rub. No: Gallop/S3, Gallop/S4, Friction Rub Peripheral Pulses: 2+: Radial (L), Radial (R) GI/Abdominal: Normal Bowel Sounds, Soft, Non-Tender, No Organomegaly, No Distention, No Abnormal Bruit, No Mass. No: Guarding (Male) Exam: Deferred Rectal (Males) Exam: Deferred Back Exam: Normal Inspection, Full Range of Motion. No: CVA Tenderness (L), CVA Tenderness (R), Muscle Spasm Extremities: Normal Inspection, Normal Range of Motion, Non-Tender, No Pedal Edema, Normal Capillary Refill. No: Analisa's Sign Neurological: Alert, Oriented, CN II-XII Intact, Normal Cognition, Normal Gait, No Motor/Sensory Deficits Psychiatric: Anxious (Moderate), Depressed Mood (Mild with adequate eye contact) Skin Exam: Warm, Dry, Intact, Normal Color, No Rash, Other (Mild to moderate acne vulgaris with additional evidence of severe scarring in the back, etc.). No: Diaphoretic Lymphatic: No Adenopathy Course - Vital Signs Last Recorded V/S: Last Vital Signs Temp 37.0 C 02/25/19 16:39 Pulse 89 02/25/19 16:39 Resp 20 02/25/19 16:39 BP 146/96 H 02/25/19 16:39 Pulse Ox 93 L 02/25/19 16:39 Vital Signs - 24 hr 02/25/19 16:39 Temperature [ 37.0 C Temporal] Pulse, 89 Peripheral [ Right Brachial] Respiratory 20 Rate Blood Pressure 146/96 H [Right Upper Arm] O2 Sat by Pulse 93 L Oximetry - Orders/Labs/Meds Orders: Active Orders 24 hr Category Date Time Status Blood Glucose Check, Bedside [RC] STAT Care 02/25/19 18:48 Active Peripheral IV Care [RC] . DIRECTED Care 02/25/19 16:40 Active CULTURE URINE [RM] Routine Lab 02/25/19 17:10 Received Sodium Chloride 0.9% [Saline Flush] Med 02/25/19 16:40 Active 10 ml FLUSH ASDIRECTED PRN Obtain Past Medical Record [OM.PC] Routine Oth 02/25/19 16:37 Active Peripheral IV Insertion Adult [OM.PC] Routine Oth 02/25/19 16:40 Ordered Medication Orders Sodium Chloride (Saline Flush) 10 ml FLUSH ASDIRECTED PRN PRN Reason: Keep Vein Open Labs: Laboratory Tests 02/25/19 02/25/19 02/25/19 Range/Units 16:39 17:00 17:00 WBC 11.5 H (4.0-10.2) K/uL RBC 5.02 (4.33-5.41) M/uL Hgb 15.9 (13.1-16.8) g/dL Hct 45.1 (39.0-49.0) % MCV 89.8 (84.0-98.0) fL MCH 31.7 (28.2-33.3) pg MCHC 35.3 (31.7-36.0) g/dL RDW 12.9 (11.2-14.1) % Plt Count 279 (150-350) K/uL Neut % (Auto) 73.4 (45.0-80.0) % Lymph % (Auto) 16.2 (10.0-50.0) % [place] % (Auto) 5.5 (2.0-14.0) % Eos % (Auto) 4.3 (0.0-5.0) % Baso % (Auto) 0.6 (0.0-2.0) % Neut # (Auto) 8.44 H (1.40-7.00) K/uL Lymph # (Auto) 1.87 (0.50-3.50) K/uL [place] # (Auto) 0.63 (0.00-1.00) K/uL Eos # (Auto) 0.50 (0.00-0.50) K/uL Baso # (Auto) 0.07 (0.00-0.20) K/uL Sodium 135 L (136-145) mmol/L Potassium 4.9 (3.5-5.1) mmol/L Chloride 100 (98-107) mmol/L Carbon Dioxide 24.4 (21.0-32.0) mmol/L BUN 21 H (7-18) mg/dL Creatinine 0.95 (0.51-1.17) mg/dL Est Cr Clr Drug Dosing 100.96 mL/min Estimated GFR (MDRD) > 60 mL/min Glucose 427 H* (74-106) mg/dL Lactic Acid (0.4-2.0) mmol/L Calcium 9.1 (8.5-10.1) mg/dL Magnesium 2.0 (1.8-2.4) mg/dL Total Bilirubin 0.2 (0.2-1.0) mg/dL AST 18 (15-37) U/L ALT 33 (12-78) U/L Alkaline Phosphatase 84 (46-116) IU/L Total Protein 7.3 (6.4-8.2) g/dL Albumin 3.8 (3.4-5.0) g/dL Specimen Type Urincc Urine Color Light yellow Urine Appearance Clear Urine pH 6.0 (5.0-9.0) Ur Specific [place] 1.020 (1.005-1.030) Urine Protein >=300 H (NEGATIVE) mg/dL Urine Glucose (UA) 500 H (NEGATIVE) mg/dL Urine Ketones Negative (NEGATIVE) mg/dL Urine Occult Blood Trace-intact H (NEGATIVE) Urine Nitrite Negative (NEGATIVE) Urine Bilirubin Negative (NEGATIVE) Urine Acetone (NEGATIVE) Urine Urobilinogen 0.2 (0.2-1.0) E.U./dL Ur Leukocyte Esterase Negative (NEGATIVE) Urine RBC 0-5 /HPF Urine WBC Not seen /HPF Ur Epithelial Cells Rare /LPF Urine Bacteria Not seen (NONE TO FEW) /HPF Ketones 02/25/19 02/25/19 02/25/19 Range/Units 17:00 17:10 17:10 WBC (4.0-10.2) K/uL RBC (4.33-5.41) M/uL Hgb (13.1-16.8) g/dL Hct (39.0-49.0) % MCV (84.0-98.0) fL MCH (28.2-33.3) pg MCHC (31.7-36.0) g/dL RDW (11.2-14.1) % Plt Count (150-350) K/uL Neut % (Auto) (45.0-80.0) % Lymph % (Auto) (10.0-50.0) % [place] % (Auto) (2.0-14.0) % Eos % (Auto) (0.0-5.0) % Baso % (Auto) (0.0-2.0) % Neut # (Auto) (1.40-7.00) K/uL Lymph # (Auto) (0.50-3.50) K/uL [place] # (Auto) (0.00-1.00) K/uL Eos # (Auto) (0.00-0.50) K/uL Baso # (Auto) (0.00-0.20) K/uL Sodium (136-145) mmol/L Potassium (3.5-5.1) mmol/L Chloride (98-107) mmol/L Carbon Dioxide (21.0-32.0) mmol/L BUN (7-18) mg/dL Creatinine (0.51-1.17) mg/dL Est Cr Clr Drug Dosing mL/min Estimated GFR (MDRD) mL/min Glucose (74-106) mg/dL Lactic Acid 0.8 (0.4-2.0) mmol/L Calcium (8.5-10.1) mg/dL Magnesium (1.8-2.4) mg/dL Total Bilirubin (0.2-1.0) mg/dL AST (15-37) U/L ALT (12-78) U/L Alkaline Phosphatase (46-116) IU/L Total Protein (6.4-8.2) g/dL Albumin (3.4-5.0) g/dL Specimen Type Urine Color Urine Appearance Urine pH (5.0-9.0) Ur Specific [place] (1.005-1.030) Urine Protein (NEGATIVE) mg/dL Urine Glucose (UA) (NEGATIVE) mg/dL Urine Ketones (NEGATIVE) mg/dL Urine Occult Blood (NEGATIVE) Urine Nitrite (NEGATIVE) Urine Bilirubin (NEGATIVE) Urine Acetone Negative (NEGATIVE) Urine Urobilinogen (0.2-1.0) E.U./dL Ur Leukocyte Esterase (NEGATIVE) Urine RBC /HPF Urine WBC /HPF Ur Epithelial Cells /LPF Urine Bacteria (NONE TO FEW) /HPF Ketones Negative Accu-Chek of 114 mg percent prior to discharge. Urine Specimen set up for culture and sensitivity Meds: Medications Generic Name Dose Route Start Last Admin Trade Name Freq PRN Reason Stop Dose Admin Sodium Chloride 10 ml 02/25/19 16:40 Saline Flush FLUSH ASDIRECTED PRN Keep Vein Open Discontinued Medications Generic Name Dose Route Start Last Admin Trade Name Freq PRN Reason Stop Dose Admin Lactated Ringer's 1,000 mls @ 999 mls/hr 02/25/19 17:47 02/25/19 17:58 Ringers, Lactated IV 02/25/19 18:47 999 mls/hr .BOLUS ONE Administration Insulin Human Regular 10 unit 02/25/19 17:46 02/25/19 17:55 Humulin R IV 02/25/19 17:47 10 unit ONETIME ONE Administration - Radiology Interpretation Free Text/Narrative:: None Departure - Departure Time of Disposition: 19:10 Disposition: Home, Self-Care 01 Condition: Good Clinical Impression: IDDM (insulin dependent diabetes mellitus), Diabetic nephropathy associated with type 1 diabetes mellitus, Tobacco abuse counseling, Hyperlipidemia, Leukocytosis, Elevated blood pressure reading, Hyponatremia, Mixed anxiety depressive disorder - Discharge Information *PRESCRIPTION DRUG MONITORING PROGRAM REVIEWED*: Not Applicable *COPY OF PRESCRIPTION DRUG MONITORING REPORT IN PATIENT XANDER: Not Applicable Referrals: Shanelle Almeida NP [Primary Care Provider] - Forms: ED Department Discharge Additional Instructions: 1. Follow-up with your regular provider tomorrow for reevaluation and recommended repeat 6 hour fasting basic metabolic panel and phosphate level 2. Instructions for your director long term care insulin at that time. You may increase your insulin this evening to 30 units with continuation of previous sliding scale as before. Recommend future telephone consultations with your regular provider, if you blood sugars remain over the 200s for further adjustment of your medical therapy 3. Discuss possible early referral to your business law instructor in [place] at time of the above follow-up 4. Strict compliance with diabetic diet including 3 small meals per day and 3 intermittent snacks per day as discussed 5. Stop all tobacco use BREANNA as directed/per provided information and consider contacting [employer]uit [employer]ne, etc.. 6. Immediately after this visit verify that your cellular telephone's voicemail has been activated and is empty. Also verify that your home telephone 's answering machine is operating properly and has space to receive messages. Note that it is sometimes necessary for us to be able to contact you at a later date to discuss your medical care. 7. Please remember that we are ALWAYS here for you and want to answer any questions you may have. Feel free to call the hospital any time and we call you back BREANNA. - Problem List & Annotations (1) IDDM (insulin dependent diabetes mellitus) SNOMED Code(s): 48505396 Code(s): E11.9 - TYPE 2 DIABETES MELLITUS WITHOUT COMPLICATIONS; Z79.4 - PENITENTIARY (CURRENT) USE OF INSULIN Status: Chronic Priority: Medium Current Visit: Yes Annotation/Comment:: Overall good response to aggressive medical therapy in the emergency room as above, including IV fluids and one dose of IV Humulin regular insulin. Patient apparently has an appointment scheduled with his business law instructor at [facility] in [place] on 03/08 with consideration of possible continuous blood sugar monitoring and insulin pump therapy by his history. Note that patient has had multiple dose changes of his insulin therapy in recent weeks by his regular provider by his history, including decrease of his long-acting insulin. He does have a history of hypoglycemia as above. Dietary issues, including importance of regular meals, diabetic snacks, etc. discussed. He may benefit from counseling with the dietitian. Mild leukocytosis today but no fever or direct evidence of infection. Note poor dentition, however, with patient benefiting from dental evaluation BREANNA. Continue to observe closely by his regular providers as above. Note history of labile IDDM as above. Close follow-up with his regular provider tomorrow as per discharge instructions, including blood work, etc. Repeat CBC would be beneficial, if patient is febrile. (2) Tobacco abuse counseling SNOMED Code(s): 470953903, 376647727, 489507483 Code(s): Z71.6 - TOBACCO ABUSE COUNSELING Status: Chronic Priority: Medium Current Visit: Yes Annotation/Comment:: Tobacco cessation once again strongly encouraged with tobacco cessation information provided prior to discharge. Note pulmonary obstructive changes by previous chest x-rays with consideration of PFTs. (3) Hyperlipidemia SNOMED Code(s): 87403564 Code(s): E78.5 - HYPERLIPIDEMIA, UNSPECIFIED Status: Chronic Priority: Medium Current Visit: Yes Annotation/Comment:: He would benefit from statin therapy secondary to his diabetes with this to be discussed with his regular provider Qualifiers: Hyperlipidemia type: mixed hyperlipidemia Qualified Code(s): E78.2 - Mixed hyperlipidemia (4) Elevated blood pressure reading SNOMED Code(s): 19832232 Code(s): R03.0 - ELEVATED BLOOD-PRESSURE READING, W/O DIAGNOSIS OF HTN Status: Acute Priority: Medium Current Visit: Yes Onset Date: 02/25/19 Annotation/Comment:: No previous history of hypertension with anxiety component to today's blood pressure readings. Continue to observe closely by his regular provider. He may benefit from LAURA inhibitor therapy secondary to his IDDM. (5) Hyponatremia SNOMED Code(s): 90867161 Code(s): E87.1 - HYPO-OSMOLALITY AND HYPONATREMIA Status: Chronic Current Visit: Yes Annotation/Comment:: 1 L lactated Ringer's IV bolus given in the emergency room. Repeat blood work with his regular provider tomorrow. (6) Mixed anxiety depressive disorder SNOMED Code(s): 098267795 Code(s): F41.8 - OTHER SPECIFIED ANXIETY DISORDERS Status: Chronic Priority: Medium Current Visit: Yes Annotation/Comment:: Moderate control based on today's evaluation. Consider increase of his Zoloft therapy. He may also benefit from counseling with patient having trouble coping with his chronic disease, IDDM, etc. Close follow-up by his regular provider. Emotional support provided. - Problem List Review Problem List Initiated/Reviewed/Updated: Yes - My Orders Last 24 Hours: My Active Orders 02/25/19 16:37 Obtain Past Medical Record [OM.PC] Routine 02/25/19 16:40 Peripheral IV Care [RC] . DIRECTED Sodium Chloride 0.9% [Saline Flush] 10 ml FLUSH ASDIRECTED PRN Peripheral IV Insertion Adult [OM.PC] Routine 02/25/19 17:10 CULTURE URINE [RM] Routine 02/25/19 18:48 Blood Glucose Check, Bedside [RC] STAT - Assessment/Plan Last 24 Hours: My Active Orders 02/25/19 16:37 Obtain Past Medical Record [OM.PC] Routine 02/25/19 16:40 Peripheral IV Care [RC] . DIRECTED Sodium Chloride 0.9% [Saline Flush] 10 ml FLUSH ASDIRECTED PRN Peripheral IV Insertion Adult [OM.PC] Routine 02/25/19 17:10 CULTURE URINE [RM] Routine 02/25/19 18:48 Blood Glucose Check, Bedside [RC] STAT Assessment:: As above Plan: As above. Extensive precautions were given to the patient, who is in agreement with the treatment plan. See Patient Instructions for further treatment and plan.
[2019-02-25] MEDS ORDERED: Sodium Chloride 0.9% 10 ML Syringe FLUSH PRN (16:40)
[2019-02-25 17:23] LABS: CHLORIDE,CL 100 mmol/L (98-107); SODIUM,NA 135 mmol/L (136-145)
[2019-02-25] MEDS ORDERED: Insulin Regular, Human 100 Units/ML 3 ML Vial IV ONE (17:46)
[2019-02-25] MEDS ORDERED: Lactated Ringers 1,000 ML IV ONE (17:47)
== END 2019-02-25 19:08 | disposition home or self-care (01) ==
LOC: LL.ED 16:33
DX: E10.21 Type 1 diabetes mellitus with diabetic nephropathy (principal); E78.5 Hyperlipidemia, unspecified; D72.829 Elevated white blood cell count, unspecified; N18.9 Chronic kidney disease, unspecified; R03.0 Elevated blood-pressure reading, without diagnosis of hypertension; E10.22 Type 1 diabetes mellitus with diabetic chronic kidney disease; E87.1 Hypo-osmolality and hyponatremia; F41.8 Other specified anxiety disorders; Z71.6 Tobacco abuse counseling; F17.210 Nicotine dependence, cigarettes, uncomplicated; Z98.890 Other specified postprocedural states; Z90.49 Acquired absence of other specified parts of digestive tract; Z88.0 Allergy status to penicillin; Z88.1 Allergy status to other antibiotic agents; Z88.8 Allergy status to other drugs, medicaments and biological substances; Z79.899 Other long term (current) drug therapy
CPT/HCPCS: 36415; 80053; 81001; 81003; 82009; 83605; 83735; 85025; 87086; 96361; 96374; 99284-25; J1815-GY; J7120